=== PATIENT | male | born 1935 | race African-American/Black ===

== ENCOUNTER 2017-02-09 09:26 | Inpatient (IN) | payer MEDICARE, OTHER ==
[2017-02-09] MEDS ORDERED: Dexamethasone 10 MG/ML VIAL ONE (09:47)
[2017-02-09] MEDS ORDERED: Albuterol Sulfate 2.5 mg/0.5 ml Neb ONE (09:53)
[2017-02-09] MEDS ORDERED: Magnesium 2 GM/NS 0.9% 50 ML 2 GM in Premix Bag 1 BAG IVPB SCH (10:00)
[2017-02-09 10:15] LABS: INR-International Normal Ratio 1.6; Prothrombin Time 19.7 SEC (12.0-14.7)
[2017-02-09 10:16] LABS: PTT 44.5 SEC (22.9-36.1)
[2017-02-09 10:28] LABS: #Eosinphils 0.5 thou/uL (0.0-0.7); #Lymphocytes 1.7 thou/uL (1.20-3.40); #Monocytes 0.6 thou/uL (0.11-0.59); #Neutrophils 4.8 thou/uL (1.40-6.50); %Basophils 0.3 % (0.0-1.0); %Eosinophils 6.7 % (0.0-10.0); %Lymphocytes 22.3 % (21.0-51.0); %Monocytes 7.5 % (0.0-10.0); %Neutrophils 63.3 % (42.0-75.0); Hemoglobin 16.3 g/dL (14.0-18.0); Mean Corpuscular HGB CONC 33.3 g/dL (32.0-36.0); Mean Corpuscular Hemoglobin 31.6 pg (27.0-31.0); Mean Corpuscular Volume 94.7 fl (80.0-94.0); Mean Platelet Volume 8.8 fL (7.4-10.4); Platelet Count 206 thou/uL (130-400); RBC Distribution Width 12.7 % (11.5-14.5); Red Blood Cell (RBC) Count 5.17 mill/uL (4.70-6.10); White Blood Cell (WBC) Count 7.6 thou/uL (4.8-10.8)
[2017-02-09 10:31] LABS: ALT (SGPT) 22 U/L (8-55); AST (SGOT) 22 U/L (5-34); Albumin 4.5 g/dL (3.4-4.8); Alkaline Phosphatase 110 U/L (40-150); Anion Gap 13 mmol/L (10-20); BUN (Urea Nitrogen) 15 mg/dL (8.4-25.7); CK (CPK) 69 U/L (30-200); Calc. Creatinine Clearance 0 mL/min (70-130); Calcium 10.4 mg/dL (7.8-10.44); Carbon Dioxide 25 mmol/L (23-31); Chloride 104 mmol/L (98-107); Estimated GFR-MDRD 79; Globulin 3.2 g/dL (2.4-3.5); Glucose 114 mg/dL (83-110); Lipase 41 U/L (8-78); Potassium 4.1 mmol/L (3.5-5.1); Protein, Total 7.7 g/dL (5.8-8.1); Sodium 138 mmol/L (136-145)
[2017-02-09 10:32] LABS: CKMB 1.9 ng/mL (0-6.6)
[2017-02-09 10:40] LABS: Troponin I Less than 0.010 ng/mL (< 0.028)
[2017-02-09 10:58] LABS: Actual Bicarbonate (HCO3a) 25.6 mEq/L (22-26); Base Excess (BEa) 0.9 mEq/L (0 (+/-) 2.5); CO2 Tension 40.9 mmHg (35.0-45.0); Calcium, Ionized 1.2 mmol/L (1.12-1.30); Hematocrit-ABG 45.4 % (42.0-52.0); O2 Tension (PaO2) 80.5 mmHg (80.0-100.0); pH, Arterial 7.41 (7.35-7.45)
[2017-02-09 11:00] LABS: ALV-art Gradient 69.135 (0-20); Puncture Site RRA
--- NOTE | 2017-02-09 11:13 | RAD ---
SINGLE VIEW CHEST: Date: 02/09/17 COMPARISON: 12/23/16. CT chest 08/28/14. HISTORY: Shortness of breath and dyspnea. Chest tightness while coughing. FINDINGS: Single view of the chest shows a normal sized cardiomediastinal silhouette. In the left hilar region, there is a 3.0 cm mass-like opacity with central lucency. This is in the region where the previous c avitary lesion was seen in the lingula on the prior CT, but appears to have enlarged. A calcified gra nuloma is seen in the left lung base. No pleural effusion or pneumothorax seen. IMPRESSION: Left hilar mass with central lucency may represent a cavitary mass. A CT of the chest with contrast i s recommended for further evaluation. POS: CLAUDETTE
[2017-02-09 11:40] LABS: Bilirubin Negative (Negative); Blood, Urine Negative (Negative); Clarity CLEAR (Clear); Glucose, Urine (Dipstick) Negative (Negative); Leukocyte Negative (Negative); Nitrite Negative (Negative); Protein, Urine (Dipstick) Trace mg/dL (Neg-Trace); Specific Gravity, Urine 1.014 (1.002-1.036)
--- NOTE | 2017-02-09 12:48 | CT ---
CT PULMONARY ANGIOGRAM WITH IV CONTRAST AND 3D POSTPROCESSING: Date: 02/09/17 HISTORY: Shortness of breath. Dyspnea. Chest pain. Coughing. COPD. FINDINGS: Comparison made with exam of 08/28/14. The pulmonary arterial vasculature is well opacified without filling defects to suggest pulmonary emb olism. The thoracic aorta is well opacified without aneurysm or dissection. No vascular calcification s are present. No mediastinal or hilar or axillary lymphadenopathy seen. No pleural or pericardial ef fusions are seen. There are emphysematous changes mainly in the upper lung santiago. A spiculated and cavitated 3.0 cm ma ss is seen (with thickened mckeon of the cavity) in the left upper lobe with intraluminal extension in to the branch of the left upper lobe bronchus. The thyroid nodules and evidence of old granulomatous disease are again seen. There are degenerative changes in the spine. The 7.0 mm nodule in the posterior inferior aspect of the right upper lobe adjacent to the fissure is stable. A new 8.0 mm parenchymal nodule has, however, developed in the left lung base. There is bron chiectasis in the right lung base. Upper abdominal tomograms demonstrate cholelithiasis, left renal cyst, and calcified granulomas in th e spleen. IMPRESSION: 1. No CT evidence of pulmonary embolism. 2. Findings suspicious for left lung malignancy. CODE T. CODE LN
[2017-02-09] MEDS ORDERED: Sodium Chloride 0.9% 1,000 ML IV SCH (13:11)
[2017-02-09] MEDS ORDERED: Ondansetron ODT 4 MG TAB SL PRN ×2 (13:11→21:11)
[2017-02-09] MEDS ORDERED: Ondansetron HCl/PF 4 MG/2 ML Vial IVP PRN ×2 (13:11→21:09)
[2017-02-09] MEDS ORDERED: ISOVUE-370 76%-LOCM 1 ML ONE (14:00)
[2017-02-09 14:20] LABS: Lactic Acid 1.2 mmol/L (0.5-2.2)
--- NOTE | 2017-02-09 16:59 | CON ---
DATE OF CONSULTATION: 02/09/2017 This is an 81-year-old gentleman recently discharged from the hospital, presented wi th increasing shortness of breath, coughing and wheezing. X-ray showed a left upper lung cavitary in filtrate. CAT scan confirmed this. He denies any hemoptysis, chest pain, chills or sweats. According to his daughter who is at the beds jose, she says that following his discharge, he did well and started having more wheezing and coughing . He has lost considerable weight. His sats were 92% on room air. According to his daughter on most days he is able to walk a fair distance without getting markedly sh ort of breath. Today, he can barely walk 20 feet. PAST MEDICAL HISTORY: COPD, CVA, multiple, right-sided weakness, diabetes, hyperlipidemia, high chol esterol, hypertension, previous pneumonia. PAST SURGICAL HISTORY: Appendix. MEDICATIONS FROM HOME: Includes a Medrol tapering dose, hydralazine 25 three times a day, Spiriva, F tyree 0.4, Procardia 30, lisinopril 20, Atrovent, Pepcid, Eliquis 5. ALLERGIES: Apparently PREDNISONE. Anaphylaxis. 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 REVIEW OF SYSTEMS: Otherwise 10 point negative. PHYSICAL EXAMINATION: VITAL SIGNS: His sats are 92%, respirations 18, pulse 80. GENERAL: Mild distress. CHEST: Chest with bilateral diffuse wheezing. CARDIAC: Normal S1-S2. No gallops. ABDOMEN: No masses. LABORATORY: Reports personally reviewed including a chest x-ray which shows the left lower lung cavi tary infiltrate, retrospectively it might have been present on previous x-rays, though the technique was different. CAT scan confirmed the above findings, cavitary mass 3 cm, thick walled in the superi or segment of the lower lobe or left upper lobe. His lab otherwise shows a white count of 7000, H&H 16 and 40, platelet count is normal. INR is 1.6. Blood gases pO2 was 80, pCO2 47.41, creatinine is normal. IMPRESSION: 1. Chronic obstructive pulmonary disease exacerbation. 2. Bronchitis. 3. Left upper lung cavitary mass. 4. Former smoker. 5. Cerebrovascular accident. 6. Diabetes. 7. Hypertension. Apparently he is allergic to PREDNISONE as per his history which doctor was started on Decadron , neb treatments. I am going to adjust his medication. Once the pulmonary status improves, consider workup regarding his lung mass. Please note this is 50 minutes time, which 50% of the time was spent on the floor direct patient car e.
[2017-02-09] MEDS: cloNIDine 0.1 MG TAB PO PRN (17:32)
[2017-02-09] MEDS ORDERED: Dexamethasone 4 mg/ml Vial SLOW IVP SCH ×2 (18:00→21:00)
[2017-02-09] MEDS ORDERED: Mometasone/Formoterol 120 PUFF INHALER INH SCH (18:30)
[2017-02-09] MEDS: Amoxicillin/Potassium Clav 500 MG TAB PO SCH (20:21)
[2017-02-09] MEDS: Apixaban 5 MG TAB PO SCH (21:56)
[2017-02-09] MEDS: NIFEdipine XL 30 MG TAB PO SCH (21:56)
[2017-02-09] MEDS: Famotidine 20 MG TAB PO SCH (21:56)
[2017-02-09] MEDS: Carvedilol 6.25 MG TAB PO SCH (21:56)
[2017-02-09] MEDS: hydrALAZINE 25 MG TAB PO SCH (21:57)
[2017-02-09] MEDS: Lisinopril 20 MG TAB PO SCH (21:57)
[2017-02-09] MEDS: Dexamethasone 4 mg/ml Vial SLOW IVP SCH (23:35)
[2017-02-09] MEDS: Sodium Chloride 0.9% 1,000 ML IV SCH (23:36)
--- NOTE | 2017-02-10 03:15 | HP ---
DATE OF ADMISSION: 02/09/2017 CHIEF COMPLAINT: Cough. HISTORY OF PRESENT ILLNESS: This is an 81-year-old black male patient of Dr. Evgeny Moe, who had been in [place] in early December for a 2-day stay for COPD. He was admitted on the and disc harged on the . He was given methylprednisolone taper, which he had finished and a few days ago, he started to have his cough come back and so he came to the emergency room. At that point, further imaging found a new cavitary lesion in his left lobe. He was admitted for more help with his COPD e xacerbation and for further information from Pulmonology regarding this new finding of a lung mass. He sees Dr. Benites routinely for his COPD. His son is in the room with him today. Dr. Mcneill has al ready been by and seen him for Dr. Benites. PAST MEDICAL HISTORY: Positive for COPD; hypertension; several CVAs in the past with a chronic right facial droop as a result and some mild weakness in upper and lower extremities, but he does ambulate with a cane and has use of all 4 extremities; history of hyperlipidemia; history of BPH with lower u rinary tract symptoms. PAST SURGICAL HISTORY: Positive for appendectomy and cataract repair. MEDICATIONS: Eliquis 5 mg b.i.d., Lipitor 10 mg a day, Coreg 6.25 mg b.i.d., hydralazine 25 mg t.i.d ., lisinopril 20 mg b.i.d., nifedipine 30 mg at bedtime, Pepcid 20 mg b.i.d., albuterol inhalers p.r. n., Atrovent nebulizers at least once a day and p.r.n., also has Dulera inhaler 200/5 that he takes 2 puffs b.i.d., and Flomax 0.4 mg daily. ALLERGIES: He has an allergy to prednisone, anaphylaxis, possibly. The family states that they were told that the prednisone might have been a contributing factor to one of his CVAs. SOCIAL HISTORY: He is a , lives at home with family. I think primarily cousins. 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 He was a smoker in the past, but quit in the . FAMILY HISTORY: Negative for vascular diseases, but there are some family members, not exactly sure who, that had lung cancers. REVIEW OF SYSTEMS: He denies any fever or headache. No changes in his vision. Denies any new findi ngs regarding his facial neurological deficits. No trouble chewing or swallowing. He denies any hem optysis or hematemesis. No melena. No bright red blood per rectum. Denies any changes to bowel or bladder habits. Denies any abdominal pain, pelvic pain. Denies any dysuria or hematuria. Neurologi nadeem, he has had poor vision in his right eye for a long time. Also, his hearing has been getting w orse and some slight memory issues. Denies any suicidal or homicidal ideations. Denies any auditory or visual hallucinations. Denies any new paresthesias or paresis, only one that he complains of is the right side of his face. PHYSICAL EXAMINATION: GENERAL: He is awake, alert, cooperative, thin, and appears his stated age of 81. VITAL SIGNS: Temperature 97.9, pulse 71, respirations 16, saturating 98% on 2-1/2 liters of O2 by na quincy cannula, his BP is 149/70. HEENT: He has normocephalic, atraumatic cranium with pupils that are equal, round, and reactive to l ight and accommodation. Wears glasses. He has very poor dentition, missing several teeth. He does have obvious right facial droop, but able to talk. There is no difficulty in understanding his speec h. No JVD or bruits are appreciable. NECK: Supple. No lymphadenopathy. LUNGS: Have some diffuse light wheezes throughout. No rhonchi. No whispering pectoriloquy. HEART: S1 and S2 with no rubs, murmurs, or gallops. ABDOMEN: Soft, nontender, and nondistended. No masses. GENITOURINARY: Deferred. EXTREMITIES: Showed good palpable pulses x4. No cyanosis, clubbing, or edema. NEUROLOGIC: He is alert and oriented x4. Cranial nerves II through XII are grossly intact except fo r the right side of face. Right-sided upper and lower extremities have 3/5 strength, left side is 4/ 5. There is no sensory deficit noted. LABORATORY AND X-RAY FINDINGS: His labs showed white count 7.6, H&H are 16 and 49 respectively with 206,000 platelets. Sodium 138, potassium 4.1, chloride 104, bicarb 25, BUN is 14, creatinine is 1.09 , glucose 114. His GFR is 79. INR is 1.6. Beta natriuretic peptide is 115. Chest x-ray and a CT angio of the thorax were done in the emergency room, which showed the left lower lobe cavitary lesion. ASSESSMENT AND PLAN: Chronic obstructive pulmonary disease exacerbation, new lung mass finding per Beatrice Mcneill of Pulmonology. We will get him back to his baseline pulmonary function and then plan discha rge for further workup of his lung mass. We will continue his home medications and possibly discharg e tomorrow if he continues to maintain doing this well that he is here tonight.
[2017-02-10] MEDS: cloNIDine 0.1 MG TAB PO PRN (03:17)
[2017-02-10] MEDS: Dexamethasone 4 mg/ml Vial SLOW IVP SCH ×3 (05:01→17:49)
[2017-02-10] MEDS: Ipratropium Bromide 2.5 ml Neb NEB SCH ×4 (06:16→19:01)
[2017-02-10] MEDS: Mometasone/Formoterol 120 PUFF INHALER INH SCH ×2 (06:23→19:04)
--- NOTE | 2017-02-10 09:00 | PRG ---
DATE OF SERVICE: 02/10/2017 SUBJECTIVE: The patient is feeling minimally better with improved cough and shortness breath when he is not moving around, but continues to feel tight in his chest, has some improvement with nebulizer treatments this morning. Denies hemoptysis. No syncope. PHYSICAL EXAMINATION: VITAL SIGNS: Temperature 97.8, pulse of 68, respirations 12-18, pulse ox is 94% on 2 liters, blood p ressure 142/63. GENERAL: He is awake and alert. He has some conversational dyspnea. NECK: Supple. HEART: Regular rate and rhythm. LUNGS: With diminished breath sounds and expiratory wheezes throughout. No rales or rhonchi. ABDOMEN: Soft. EXTREMITIES: With 2+ pulses. LABORATORY DATA: Blood cultures still negative. Flu test was negative. ASSESSMENT AND PLAN: This is an 81-year-old gentleman with known chronic obstructive pulmonary disea se, now with chronic obstructive pulmonary disease exacerbation as well as a new onset lung mass. 1. Chronic obstructive pulmonary disease and bronchitis. We will continue steroids and antibiotic t herapy. I appreciate Dr. Mcneill's input. 2. Left upper lung cavitary mass. Workup as an outpatient per pulmonary. He will follow up with Dr Sandra Benites. 4. History of cerebrovascular accident. Continue Eliquis. 5. Hypertension is stable on his current medications. We will continue to monitor closely. 6. Type 2 diabetes. We will continue to monitor closely, especially being on the steroids. We will get Accu-Cheks.
[2017-02-10] MEDS: hydrALAZINE 25 MG TAB PO SCH ×3 (09:22→20:20)
[2017-02-10] MEDS: Carvedilol 6.25 MG TAB PO SCH ×2 (09:22→20:21)
[2017-02-10] MEDS: Apixaban 5 MG TAB PO SCH ×2 (09:22→20:22)
[2017-02-10] MEDS: Tamsulosin HCl 0.4 MG CAP PO SCH (09:22)
[2017-02-10] MEDS: Famotidine 20 MG TAB PO SCH ×2 (09:22→20:21)
[2017-02-10] MEDS: Lisinopril 20 MG TAB PO SCH ×2 (09:22→20:21)
[2017-02-10] MEDS: Amoxicillin/Potassium Clav 500 MG TAB PO SCH ×2 (09:22→20:22)
--- NOTE | 2017-02-10 13:34 | PRG ---
DATE OF SERVICE: 02/10/2017 The patient feels a little better. PHYSICAL EXAMINATION: VITAL SIGNS: Temperature 98.0, pulse is 67, blood pressure 139/64, O2 saturation 96%, respiratory ra te 16. He is awake and alert. HEENT: Remarkable for poor dentition. NECK: No JVD. LUNGS: Rhonchi bilaterally. CARDIOVASCULAR: S1 and S2 regular. ABDOMEN: Soft, nontender. EXTREMITIES: No edema. LABORATORY DATA: Laboratory data from yesterday was reviewed, cultures show no growth to date. ASSESSMENT: 1. Left upper lobe cavitary mass measuring 3 cm. 2. History of cerebrovascular accident. 3. Hypertension. 4. Diabetes mellitus. PLAN: Continuing his steroids, nebulization therapy and antibiotics. He should be able to be discha rged in a day or two. He needs to follow up in the office in 2-3 weeks with a repeat x-ray. If the cavitation has not dissipated then he will need a bronchoscopy to workup for lung cancer.
[2017-02-10] MEDS: Sodium Chloride 0.9% 1,000 ML IV SCH ×2 (13:56→23:41)
[2017-02-10] MEDS: NIFEdipine XL 30 MG TAB PO SCH (20:21)
[2017-02-11] MEDS: Dexamethasone 4 mg/ml Vial SLOW IVP SCH ×2 (00:18→06:06)
[2017-02-11 05:44] LABS: #Lymphocytes 0.6 thou/uL (1.20-3.40); #Monocytes 0.3 thou/uL (0.11-0.59); #Neutrophils 11.1 thou/uL (1.40-6.50); %Eosinophils 0.1 % (0.0-10.0); %Lymphocytes 4.7 % (21.0-51.0); %Monocytes 2.4 % (0.0-10.0); %Neutrophils 92.8 % (42.0-75.0); Hemoglobin 13.9 g/dL (14.0-18.0); Mean Corpuscular HGB CONC 32.2 g/dL (32.0-36.0); Mean Corpuscular Hemoglobin 30.4 pg (27.0-31.0); Mean Corpuscular Volume 94.6 fl (80.0-94.0); Mean Platelet Volume 9.3 fL (7.4-10.4); Platelet Count 190 thou/uL (130-400); RBC Distribution Width 12.6 % (11.5-14.5); Red Blood Cell (RBC) Count 4.57 mill/uL (4.70-6.10)
[2017-02-11 06:01] LABS: Anion Gap 10 mmol/L (10-20); BUN (Urea Nitrogen) 18 mg/dL (8.4-25.7); Calc. Creatinine Clearance 50 mL/min (70-130); Carbon Dioxide 22 mmol/L (23-31); Chloride 113 mmol/L (98-107); Estimated GFR-MDRD 89; Glucose 157 mg/dL (83-110); Potassium 4.3 mmol/L (3.5-5.1); Sodium 141 mmol/L (136-145)
[2017-02-11] MEDS: Ipratropium Bromide 2.5 ml Neb NEB SCH ×4 (06:30→19:09)
[2017-02-11] MEDS: Mometasone/Formoterol 120 PUFF INHALER INH SCH ×2 (06:33→19:12)
--- NOTE | 2017-02-11 09:01 | PRG ---
DATE OF SERVICE: 02/11/2017 SUBJECTIVE: The patient continues to have cough and shortness of breath. Denies any hemoptysis. St ill has tightness in his chest with some improvement with nebulizer treatments. No syncope. No ligh theadedness, no fevers or chills. No nausea and vomiting. PHYSICAL EXAMINATION: VITAL SIGNS: Temperature 97.7, pulse of 78, respirations 20, blood pressure 153/69, pulse ox is 97% on 2 liters. GENERAL: He is awake and alert. He does have some conversational dyspnea. NECK: Supple, no JVD, adenopathy or bruits. HEART: Regular rate and rhythm. LUNGS: With scattered rhonchi bilaterally, decreased breath sounds and expiratory wheezes. ABDOMEN: Soft. EXTREMITIES: With no edema. LABORATORY DATA: Sodium 141, potassium 4.3, chloride 113, CO2 22, BUN and creatinine 18 and 0.98 wit h GFR of 89, serum glucose of 157. Accu-Cheks of 134, 163, 176, 168, calcium of 8.0. White blood ce ll count 12.0, yesterday it was 7.6, hemoglobin and hematocrit 13.9 and 43.2, platelets of 190. PT a nd PTT were elevated 2 days ago at 19.7 and 44.5. ASSESSMENT AND PLAN: This is an 81-year-old gentleman with a long history of chronic obstructive pul monary disease, history of hypertension, remote history of cerebrovascular accident, now with broncho pneumonia and new cavitary mass. 1. Bronchopneumonia. We will continue steroids and antibiotics. We will change his antibiotics to Levaquin for more atypical coverage. 2. Cavitary mass. Continue workup as per Pulmonary. Will recheck chest x-ray for any resolution wi th antibiotics. 3. History of cerebrovascular accident. We will continue Eliquis for anticoagulation. 4. Elevated PT, PTT. Will check a liver ultrasound to rule out any inflammatory etiology of his braden vated PT, PTT, could possibly due to Eliquis. 5. Type 2 diabetes. We will continue Accu-Cheks while he is on steroids. 6. Decreased hemoglobin and hematocrit. We will continue to follow. Continue gastrointestinal prot ection with H2 blockers.
[2017-02-11] MEDS: Apixaban 5 MG TAB PO SCH ×2 (09:38→21:27)
[2017-02-11] MEDS: Carvedilol 6.25 MG TAB PO SCH ×2 (09:39→21:27)
[2017-02-11] MEDS: hydrALAZINE 25 MG TAB PO SCH ×3 (09:39→21:48)
[2017-02-11] MEDS: Lisinopril 20 MG TAB PO SCH ×2 (09:39→21:28)
[2017-02-11] MEDS: Famotidine 20 MG TAB PO SCH ×2 (09:39→21:27)
[2017-02-11] MEDS: Tamsulosin HCl 0.4 MG CAP PO SCH (09:39)
[2017-02-11] MEDS: Sodium Chloride 0.9% 1,000 ML IV SCH ×2 (09:48→20:05)
--- NOTE | 2017-02-11 12:42 | PRG ---
DATE OF SERVICE: 02/11/2017 SUBJECTIVE: Still having problems with cough and congestion. PHYSICAL EXAMINATION: VITAL SIGNS: On exam, his temperature is 97.7, pulse 78, respirations 20, O2 sat 97% on 2 liters, bl ood pressure 153/69. HEENT: Unremarkable. NECK: No JVD. CHEST: Fairly clear. CARDIAC: S1 and S2 regular. ABDOMEN: Soft. EXTREMITIES: No edema. LABORATORY DATA: White blood cell count 12, hematocrit 43.2, platelet count 190. Sodium 141, potass ium 4.3, chloride 113, CO2 of 22, BUN 18, creatinine 0.9, glucose 157. ASSESSMENT: 1. Bronchopneumonia. 2. Left upper lobe cavitary lesion. 3. Extremely poor dentition - he has only 3 teeth and 1 on top, left is necrotic. This could potent ially put him at risk for anaerobic lung infection. RECOMMENDATION: Would recommend continuing to treat him with antibiotics for about 2 weeks. He shou ld be okay to discharge soon. I will go ahead and change him over to oral steroids. He will need a follow up CT scan in 3-4 weeks.
--- NOTE | 2017-02-11 15:58 | ULT ---
ULTRASOUND ABDOMEN: HISTORY: Abnormal labs. FINDINGS: The liver demonstrates a homogeneous echotexture without focal mass identified. Ductal dilatation an d echogenic foci in the spleen are consistent with old granulomatous disease. There is echogenic slu dge in the gallbladder with the gallbladder wall measuring about 3 mm in thickness. No shadowing isidro culi or pericholecystic fluid is seen. The common duct measures 5 mm in diameter. The visualized po rtions of the pancreas, aorta, and IVC are unremarkable. No hydronephrosis is seen on either side. There are bilateral renal cysts, the largest measuring 1.8 cm and located in the inferior pole of the left kidney. No free fluid is seen. IMPRESSION: 1. Splenic granulomas. 2. Gallbladder sludge. Tiny calculi cannot be excluded. 3. Bilateral renal cysts. POS: [facility]
[2017-02-11] MEDS: Dexamethasone 1 MG TAB PO SCH (16:49)
[2017-02-11] MEDS: NIFEdipine XL 30 MG TAB PO SCH (21:27)
[2017-02-12 05:59] LABS: #Lymphocytes 0.7 thou/uL (1.20-3.40); #Monocytes 0.5 thou/uL (0.11-0.59); #Neutrophils 7.4 thou/uL (1.40-6.50); %Eosinophils 0.2 % (0.0-10.0); %Lymphocytes 7.8 % (21.0-51.0); %Monocytes 5.3 % (0.0-10.0); %Neutrophils 86.8 % (42.0-75.0); Hemoglobin 14.5 g/dL (14.0-18.0); Mean Corpuscular HGB CONC 30.8 g/dL (32.0-36.0); Mean Corpuscular Hemoglobin 29.1 pg (27.0-31.0); Mean Corpuscular Volume 94.4 fl (80.0-94.0); Mean Platelet Volume 9.9 fL (7.4-10.4); Platelet Count 185 thou/uL (130-400); RBC Distribution Width 12.7 % (11.5-14.5); Red Blood Cell (RBC) Count 4.99 mill/uL (4.70-6.10); White Blood Cell (WBC) Count 8.5 thou/uL (4.8-10.8)
[2017-02-12 06:03] LABS: INR-International Normal Ratio 1.6; PTT 35.9 SEC (22.9-36.1); Prothrombin Time 19.1 SEC (12.0-14.7)
[2017-02-12 06:13] LABS: ALT (SGPT) 26 U/L (8-55); AST (SGOT) 19 U/L (5-34); Albumin 3.6 g/dL (3.4-4.8); Alkaline Phosphatase 86 U/L (40-150); Anion Gap 8 mmol/L (10-20); BUN (Urea Nitrogen) 17 mg/dL (8.4-25.7); Bilirubin, Total 0.7 mg/dL (0.2-1.2); Calc. Creatinine Clearance 51 mL/min (70-130); Calcium 9.2 mg/dL (7.8-10.44); Carbon Dioxide 28 mmol/L (23-31); Chloride 107 mmol/L (98-107); Estimated GFR-MDRD Greater than 90; Globulin 2.7 g/dL (2.4-3.5); Glucose 121 mg/dL (83-110); Protein, Total 6.3 g/dL (5.8-8.1); Sodium 139 mmol/L (136-145)
[2017-02-12] MEDS: Sodium Chloride 0.9% 1,000 ML IV SCH (06:35)
[2017-02-12 06:56] VITALS: BP 172/74; TEMP 97.5
[2017-02-12] MEDS: Mometasone/Formoterol 120 PUFF INHALER INH SCH (07:07)
[2017-02-12] MEDS: Ipratropium Bromide 2.5 ml Neb NEB SCH (07:08)
[2017-02-12] MEDS: Dexamethasone 1 MG TAB PO SCH (08:00)
[2017-02-12] MEDS: Famotidine 20 MG TAB PO SCH (08:00)
[2017-02-12] MEDS: Lisinopril 20 MG TAB PO SCH (08:00)
[2017-02-12] MEDS: Apixaban 5 MG TAB PO SCH (08:00)
[2017-02-12] MEDS: hydrALAZINE 25 MG TAB PO SCH (08:01)
[2017-02-12] MEDS: Carvedilol 6.25 MG TAB PO SCH (08:01)
[2017-02-12] MEDS: Tamsulosin HCl 0.4 MG CAP PO SCH (08:01)
--- NOTE | 2017-02-12 09:11 | DIS ---
DATE OF ADMISSION: 02/09/2017 DATE OF DISCHARGE: 02/12/2017 ADMISSION DIAGNOSES: Chronic obstructive pulmonary disease exacerbation, bronchopneumonia, new lung mass. CONSULTATIONS: Dr. Benites for Pulmonary. PROCEDURES: IV antibiotics, IV steroids, CT chest. HOSPITAL COURSE: This is an 81-year-old gentleman with a long history of COPD who [facility] with worsening cough and shortness of breath. He was recently admitted for COPD exacerbation earlier this month and was discharged home on antibiotics and a steroid taper. He impro jeff and then started to worsen again over the past few days prior to admission. On admission, he was found to have COPD exacerbation, pneumonitis as well as a new lung mass. He was started on antibiot ics, IV steroids, seen by Dr. Mcneill and Dr. Benites. His antibiotics were started with Augmentin and then switched to Levaquin and he had significant improvement of his symptoms. He had elevated PT, PT T, abdominal ultrasound was done to rule out any kind of liver mets due to the new lung mass and this was normal. Likely PT, PTT was due to the Eliquis. The patient continued to improve during his hos pitalization. Dr. Benites felt like the patient was getting close to his baseline, recommended longe r term antibiotics for about 2 weeks and switch him to oral steroids with close to follow up on the c avitary lesion to see if that was a new lung mass versus pneumonia. He was discharged home in good c ondition. DISCHARGE PHYSICAL EXAMINATION: VITAL SIGNS: Temperature 97.5, pulse of 70, respirations 16, blood pressure 172/74, pulse ox 95% on 2 liters. GENERAL: He is awake and alert, in no acute distress. He is sitting up. No conversational dyspnea. NECK: Supple. HEART: Regular rate and rhythm. LUNGS: Decreased breath sounds, occasional rhonchi, no wheeze or rales. ABDOMEN: Soft. EXTREMITIES: With no edema. DISCHARGE MEDICATIONS: Include Levaquin 500 mg daily for 2 more weeks; Decadron 2 mg p.o. b.i.d. for 5 days, then once daily for 5 days; Eliquis 5 mg b.i.d.; DuoNeb daily; Coreg 6.25 mg b.i.d.; Pepcid 20 mg b.i.d.; hydralazine 25 mg t.i.d.; Zestril 20 mg b.i.d.; Dulera 2 puffs b.i.d.; Procardia-XL 30 mg at bedtime; Flomax 0.4 mg daily. FOLLOWUP INSTRUCTIONS: Patient to follow up in my office in [address] Benites in 1-2 weeks .
--- NOTE | 2017-02-27 19:46 | EKG ---
Test Reason : Blood Pressure : / mmHG Vent. Rate : 087 BPM Atrial Rate : 087 BPM P-R Int : 150 ms QRS Dur : 074 ms QT Int : 376 ms P-R-T Axes : 078 081 075 degrees QTc Int : 452 ms Normal sinus rhythm Normal ECG Confirmed by JAZMINE WATKINS, KARINA ([id number]), acquisition editor TIFF GRECO ([id number]) on 02/27/2017 7:45:49 PM Referred By: Confirmed By:KARINA LUCERO MD
== END 2017-02-12 10:51 | disposition home or self-care (01) | DRG 194 ==
LOC: ERS 09:26 → ONC 11:33
PROVIDERS: ADMIT Family Medicine; ATTEND Family Medicine
DX: J18.0 Bronchopneumonia, unspecified organism (principal); J44.1 Chronic obstructive pulmonary disease with (acute) exacerbation; I69.351 Hemiplegia and hemiparesis following cerebral infarction affecting right dominant side; J44.0 Chronic obstructive pulmonary disease with (acute) lower respiratory infection; E11.9 Type 2 diabetes mellitus without complications; I69.398 Other sequelae of cerebral infarction; E78.5 Hyperlipidemia, unspecified; I10 Essential (primary) hypertension; Z88.8 Allergy status to other drugs, medicaments and biological substances; Z87.891 Personal history of nicotine dependence; R91.1 Solitary pulmonary nodule
CPT/HCPCS: 36415; 36416; 71010; 71275; 76700; 80048; 80053; 81003; 82553; 82805; 83605; 83690; 83880; 84484; 85025; 85610; 85730; 87040; 87804; 93005; 94640; 94760; 96365; 96375; J1100; J1956; J3475; J7611; J7620; J7644; J8540

== ENCOUNTER 2017-03-25 08:57 | Outpatient (CLI) | payer MEDICARE, MEDICAID ==
--- NOTE | 2017-03-25 10:12 | CT ---
CT OF CHEST PERFORMED WITH INTRAVENOUS CONTRAST ENHANCEMENT: History: Follow up pulmonary nodule. Comparison: 02-09-17 FINDINGS: There are radiographic changes of COPD. There is a calcified granuloma in the left lower lobe. There are two pleural based areas of nodularit y along the right hemidiaphragm. The larger measures 9 mm in size as compared to 8 mm on the prior ex am and the smaller measures approximately 6 mm in maximum dimension which appears stable. A cavitary thick walled left upper lobe mass is again demonstrated. The cavitary portion of the lesio n is smaller and therefore the overall dimensions are also slightly smaller where on the prior examin ation a measurement of 3 cm was obtained, now this measurement is approximately 2.5 cm when comparing at the same level. I do not believe that the soft tissue component of this mass is significantly pabol nged and what appears to be some endobronchial extension along the left upper lobe bronchus is stable . No significant mediastinal or hilar adenopathy or calcified hilar lymph nodes present. The visualized liver parenchyma shows some minimal intrahepatic ductal dilatation without any extrahe patic ductal prominence. This appears similar to prior examination. Increased attenuation associated with the gallbladder is probably related to stones. Ultrasound would be needed for confirmation. Right and left adrenal glands are normal. There are hypodensities involving both the right and left k idneys, statistically most likely cysts. No upper abdominal adenopathy is present. IMPRESSION: 1. Stable appearance to two nodules along the left hemidiaphragm. 2. Cavitary mass within the left upper lobe shows a less prominent cavitary component but the soft ti ssue component appears unchanged. 3. COPD changes. POS: CLAUDETTE
[2017-03-25] MEDS ORDERED: Iopamidol 370 76% 100 ML VIAL ONE (13:26)
== END 2017-03-25 08:58 | disposition home or self-care (01) ==
LOC: CT 08:57
PROVIDERS: ATTEND Internal Medicine Critical Care Medicine
DX: R91.8 Other nonspecific abnormal finding of lung field (principal); J98.6 Disorders of diaphragm
CPT/HCPCS: 71260

== ENCOUNTER 2017-05-11 10:37 | Outpatient (CLI) | payer MEDICARE, OTHER ==
--- NOTE | 2017-05-11 12:50 | RAD ---
RADIOGRAPH CHEST 2 VIEWS: Date: 05-11-17 Time: 10:47 a.m. HISTORY: 81-year-old male with dyspnea. COMPARISON: 12-23-16 FINDINGS: Again noted is the greater than 2 cm noncalcified mass in the anterior segment of the left upper lobe (demonstrated on prior CTs to have a small central cavitation). Calcified granuloma in left lower lo be. No cardiomegaly. No widening of the mediastinum other than mildly tortuous thoracic aorta. No pul monary vascular engorgement, pulmonary edema, acute airspace density, pleural effusion or pneumothora x. No obvious interval change. IMPRESSION: 1. Small mass in the anterior segment of the left upper lobe. 2. No acute findings. SHERI POS: CLAUDETTE
== END 2017-05-11 10:38 | disposition home or self-care (01) ==
LOC: RAD 10:37
PROVIDERS: ATTEND Internal Medicine Critical Care Medicine
DX: R06.00 Dyspnea, unspecified (principal); R91.8 Other nonspecific abnormal finding of lung field
CPT/HCPCS: 71046

== ENCOUNTER 2017-08-04 09:35 | Inpatient (IN) | payer MEDICARE, OTHER ==
[2017-08-04 10:21] LABS: #Basophils 0.1 thou/uL (0.0-0.2); #Eosinphils 0.5 thou/uL (0.0-0.7); #Monocytes 0.5 thou/uL (0.11-0.59); #Neutrophils 5.4 thou/uL (1.40-6.50); %Basophils 0.7 % (0.0-1.0); %Eosinophils 6.5 % (0.0-10.0); %Lymphocytes 12.9 % (21.0-51.0); %Monocytes 6.8 % (0.0-10.0); %Neutrophils 73.1 % (42.0-75.0); Hemoglobin 15.6 g/dL (14.0-18.0); Mean Corpuscular HGB CONC 33.1 g/dL (32.0-36.0); Mean Corpuscular Hemoglobin 30.2 pg (27.0-31.0); Mean Corpuscular Volume 91.2 fL (78.0-98.0); Mean Platelet Volume 9.1 fL (7.4-10.4); Platelet Count 151 thou/uL (130-400); RBC Distribution Width 12.7 % (11.5-14.5); Red Blood Cell (RBC) Count 5.15 mill/uL (4.70-6.10); White Blood Cell (WBC) Count 7.4 thou/uL (4.8-10.8)
[2017-08-04 10:42] LABS: ALT (SGPT) 19 U/L (8-55); AST (SGOT) 23 U/L (5-34); Albumin 4.2 g/dL (3.4-4.8); Alkaline Phosphatase 93 U/L (40-150); Anion Gap 15 mmol/L (10-20); BUN (Urea Nitrogen) 17 mg/dL (8.4-25.7); Calc. Creatinine Clearance 0 mL/min (70-130); Calcium 9.9 mg/dL (7.8-10.44); Carbon Dioxide 26 mmol/L (23-31); Chloride 105 mmol/L (98-107); Estimated GFR-MDRD 75; Globulin 2.9 g/dL (2.4-3.5); Glucose 176 mg/dL (83-110); Potassium 4.3 mmol/L (3.5-5.1); Protein, Total 7.1 g/dL (5.8-8.1); Sodium 142 mmol/L (136-145)
[2017-08-04 10:47] LABS: CKMB 1.5 ng/mL (0-6.6); Troponin I Less than 0.010 ng/mL (< 0.028)
--- NOTE | 2017-08-04 11:00 | RAD ---
AP CHEST: History: COPD. Date: 08-04-17 Comparison: 02-09-17 FINDINGS: Images demonstrate a cavitary lesion in the left hilar region, unchanged since the previous exam. No other masses or lesions seen. No evidence of effusions seen. IMPRESSION: Left hilar cavitary lesion. POS: [facility]
[2017-08-04] MEDS ORDERED: Azithromycin 500 MG VIAL ONE (12:25)
[2017-08-04] MEDS ORDERED: predniSONE 20 MG TAB ONE (12:25)
[2017-08-04] MEDS ORDERED: cefTRIAXone\\ROCEPHIN 1 GM VIAL ONE (12:25)
[2017-08-04] MEDS ORDERED: hydrALAZINE 20 MG/ML VIAL ONE (15:42)
[2017-08-04] MEDS ORDERED: Acetaminophen 325 MG TAB PO PRN (16:44)
[2017-08-04] MEDS ORDERED: Ondansetron ODT 4 MG TAB SL PRN (16:44)
[2017-08-04] MEDS ORDERED: Ondansetron HCl/PF 4 MG/2 ML Vial IVP PRN (16:44)
[2017-08-04 17:38] VITALS: BMI 20.9
[2017-08-04] MEDS ORDERED: cloNIDine 0.1 MG TAB PO PRN (18:00)
[2017-08-04] MEDS ORDERED: PROVENTIL INHALER 6.7 G (200 INHALATIONS) INH PRN (18:15)
[2017-08-04] MEDS: Carvedilol 6.25 MG TAB PO SCH (22:25)
[2017-08-04] MEDS: Atorvastatin Calcium 10 MG TAB PO SCH (22:25)
[2017-08-04] MEDS: NIFEdipine XL 30 MG TAB PO SCH (22:26)
[2017-08-04] MEDS: Apixaban 5 MG TAB PO SCH (22:26)
[2017-08-04] MEDS: hydrALAZINE 25 MG TAB PO SCH (22:29)
--- NOTE | 2017-08-04 22:29 | CT ---
CT THORAX WITH CONTRAST: Date: 08/04/17 Time: 11/13 p.m. HISTORY: Followup lung mass in 82-year-old male. Dyspnea. History of tuberculosis. COMPARISON: 03/25/17 and 02/09/17. TECHNIQUE: IV iodinated contrast media: Isovue FINDINGS: There is a new approximately 0.8 x 1.2 x 1.3 cm low attenuation focal lesion in the anterior dome of the liver, close to the liver capsule and close to the diaphragm, at the junction between hepatic seg ments 4A of the left lobe and hepatic segment 8 of the right lobe. There is faint, probable minimal r im enhancement (axial image 54 of 70, series 2; coronal image 39 of 121, series 601). The cavitary mass in the anterior segment of the left upper lobe was previously 3 x 2.2 x 1.8 cm in 1 04/12/16. It has now grown to 4 x 3.5 x 2.2 cm. As the nodular soft tissue lobulated component has diane wn, the central cavity is smaller than it was on 02/09/17, but larger than it was on 03/25/17. The soft tissue density component invading the anterior segmental branch of the left upper lobe bronchus has also become thicker. That branch of the bronchus has been occluded since 02/09/17. The previously described 0.8 cm pulmonary nodule at the base of the left lower lobe, abutting the lef t hemidiaphragm, has grown to current dimensions of 1.7 x 1.5 x 1.3 cm (50 of 70, series 3; 80 of 121 , series 601). Located a distance of approximately 3.5 cm anterior to it, there is another noncalcified pulmonary no dule at the base of the left lower lobe, also abutting the left hemidiaphragm. It was present previou sly, but was less conspicuous. It has now grown to 0.9 x 0.8 x 0.6 cm (51 of 70, series 3; 63 of 121, series 601). There is a new 0.6 x 0.5 x 0.7 cm round pulmonary nodule in the left lower lobe, abutting the postero lateral pleural surface (45 of 70, series 3; 94 of 121, series 601). This was not found on the previo us CTs of 02/09/17 and 03/25/17. This should not be confused for the nearby 0.9 cm benign calcified granuloma in the left lower lobe ( 41 of 70, series 3; 90 of 121, series 601). There is no pleural effusion. Minimal subsegmental atelectasis at the right posterior costophrenic an gle. Otherwise no infiltrate or bronchiectasis. No bullae. Trachea and left and right mainstem bronch i are patent and clear. No mediastinal lymphadenopathy or hilar lymphadenopathy. There are calcified left hilar nodes consistent with old granulomatous disease. heavy calcification of LAD and LCX. No ca rdiomegaly or pericardial effusion. 1.7 cm parenchymal cyst at upper pole cortex of right kidney. No destructive osseous lesion identified. In the contralateral right lower lung, there is a 0.7 x 0.6 x 0.5 cm noncalcified, well circumscribed pulmonary nodule (44 of 70, series 3; 64 of 121, series 601) located in the medial, inferior, and po sterior aspect of the right middle lobe, very close to the inferior edge of the right major fissure. It is unchanged since 02/09/17, and may represent an intrapulmonary lymph node. IMPRESSION: 1. Cavitary mass in anterior segment of left upper lobe, highly suspicious for primary lung canc er, with bronchial invasion, has grown in size. 2. Interval growth of two basilar left lower lobe pulmonary metastatic nodules, and interval jj earance of a new small left lower lobe pulmonary metastatic nodule. 3. Interval appearance of a new small hepatic lesion, highly suspicious for solitary hepatic met astasis. 4. The right middle lobe pulmonary nodule is unchanged since 02/09/17, and is probably benign, p robably unrelated to the left lower lobe growing pulmonary nodules. Code T JN R POS: [facility]
--- NOTE | 2017-08-04 23:43 | HP ---
DATE OF ADMISSION: 08/04/2017 CHIEF COMPLAINT: Cough, shortness of breath. HISTORY OF PRESENT ILLNESS: This is an 82-year-old -[place] male with a long history of COPD , hypertension, CVA or recent diagnosis of a cavitary lesion in his left lung, presented to the emerg ency department with worsening cough and shortness of breath. The patient has been doing much better since his last admission in 01/2017. He uses his albuterol nebulizer treatments ad marcial and does muc h better when he starts developing a cough and shortness of breath with the neb treatments. Usually, he has much improvement with his cough loosening up and being more productive. For the past 2-3 day s, he has had increased cough with less relief with the neb treatments. Presented to the emergency d epartment due to increasing shortness of breath and failed therapy at home. In the emergency departm ent, he was found to be mildly hypoxic. He had some improvement with the neb treatment. The ER doct or felt like the lung mass may have been larger than before and he is being admitted for further eval uation and treatment. He is now more rest. He denies chest pain, continues to have cough and shortness of breath. He krystle ed hemoptysis. 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 Rao er; chronic kidney disease, stage 3. PAST SURGICAL HISTORY: Appendectomy repair, EGD in 2007, colonoscopy in 2010. FAMILY HISTORY: Father of cancer. Mother with UT and CVA. SOCIAL HISTORY: Lives at home, the son nearby. Quit smoking in the . No alcohol use. Retired teran. REVIEW OF SYSTEMS: As per the history of present illness. General: Denies any recent fevers, chill s or recent illness. HEENT: Denies headache, denies visual changes. Cardiac: Denies chest pain. Denies palpitations. Pulmonary: Positive cough, positive shortness of breath. Denies hemoptysis. Gastrointestinal: Denies nausea, vomiting, abdominal pain, melena, hematochezia. Genitourinary: De nies dysuria. History of benign prostatic hypertrophy with some urinary symptoms, better with oral m edications. Neurologic: History of CVA in the past. No seizures, no syncope. PHYSICAL EXAMINATION: VITAL SIGNS: Temperature 98.6, pulse of 80 and regular, respirations 19, blood pressure 190/85, puls e ox is 93% on 3 liters nasal cannula. GENERAL: He is awake and alert, in no acute distress. He does have some conversational dyspnea and using some accessory muscles. HEENT: Mucosa is moist. NECK: Supple. HEART: S1, S2. No murmurs, rubs or gallops. LUNGS: Diffuse wheezes, occasional rhonchi, worse on the left side. ABDOMEN: Flat, soft, nontender, nondistended. EXTREMITIES: No clubbing, cyanosis or edema, 2+ peripheral pulses bilaterally. NEUROLOGIC: Right-sided weakness, right facial droop. LABORATORY AND X-RAY FINDINGS: Sodium 142, potassium 4.3, chloride 105, CO2 of 26, BUN and creatinin e 17 and 1.13, serum glucose of 176. Liver enzymes are normal. Cardiac enzymes are negative. BNP w as 83, albumin of 4.2. White blood cell count 7400, hemoglobin and hematocrit of 15.6 and 47, platel ets of 151. Chest x-ray in the emergency department revealed left hilar cavitary lesion with no comm ent on comparison to a CT in 03/2017. ASSESSMENT: This is an 82-year-old gentleman with longstanding chronic obstructive pulmonary disease , now with a mild chronic obstructive pulmonary disease exacerbation as well as chest x-ray changes. PLAN: 1. We will start Solu-Medrol for his chronic obstructive pulmonary disease. We will repeat CT of th e chest and compare cavitary mass to the one in 03/2017. Continue neb treatments and oxygen therapy. 2. Hypertension. We will continue his home medications and add clonidine p.r.n. 3. History of cerebrovascular accident. We will continue Eliquis. 4. Code status discussed with patient and son, he desires a DNR status and we will follow his wishes .
[2017-08-05] MEDS ORDERED: cefTRIAXone\\ROCEPHIN 1 GM in Sodium Chloride 0.9% 100 ML IVPB SCH (01:00)
[2017-08-05 05:37] LABS: #Lymphocytes 0.6 thou/uL (1.20-3.40); #Monocytes 0.1 thou/uL (0.11-0.59); #Neutrophils 8.1 thou/uL (1.40-6.50); %Basophils 0.1 % (0.0-1.0); %Eosinophils 0.2 % (0.0-10.0); %Lymphocytes 6.3 % (21.0-51.0); %Monocytes 1.4 % (0.0-10.0); Hemoglobin 14.6 g/dL (14.0-18.0); Mean Corpuscular HGB CONC 32.5 g/dL (32.0-36.0); Mean Corpuscular Hemoglobin 29.8 pg (27.0-31.0); Mean Corpuscular Volume 91.7 fL (78.0-98.0); Mean Platelet Volume 9.6 fL (7.4-10.4); Platelet Count 155 thou/uL (130-400); RBC Distribution Width 12.7 % (11.5-14.5); White Blood Cell (WBC) Count 8.8 thou/uL (4.8-10.8)
[2017-08-05 05:49] LABS: ALT (SGPT) 14 U/L (8-55); AST (SGOT) 12 U/L (5-34); Albumin 3.6 g/dL (3.4-4.8); Alkaline Phosphatase 84 U/L (40-150); Anion Gap 12 mmol/L (10-20); BUN (Urea Nitrogen) 19 mg/dL (8.4-25.7); Bilirubin, Total 0.6 mg/dL (0.2-1.2); Calc. Creatinine Clearance 48 mL/min (70-130); Calcium 9.5 mg/dL (7.8-10.44); Carbon Dioxide 24 mmol/L (23-31); Chloride 107 mmol/L (98-107); Estimated GFR-MDRD 83; Globulin 2.3 g/dL (2.4-3.5); Glucose 176 mg/dL (83-110); Potassium 4.2 mmol/L (3.5-5.1); Protein, Total 5.9 g/dL (5.8-8.1); Sodium 139 mmol/L (136-145)
--- NOTE | 2017-08-05 08:23 | PRG ---
DATE OF SERVICE: 08/05/2017 SUBJECTIVE: The patient has improved cough. He still has some productive cough in the morning, less short of breath this morning. Denies chest pain. A good appetite. OBJECTIVE: VITAL SIGNS: Temperature 97.1, pulse of 68, respirations 20, pulse ox is 100% on room air, blood pre ssure 151/67. GENERAL: He is awake and alert, in no acute distress. Speech is clear except for slight slurring of speech, right facial droop is persistent. HEART: Regular rate and rhythm. LUNGS: With scattered rhonchi. Decreased breath sounds throughout. No wheezes. ABDOMEN: Soft. EXTREMITIES: With no edema. LABORATORY DATA: White blood cell count 8.8, hemoglobin and hematocrit 14.6 and 44.9, platelets of 1 55. Sodium 139, potassium 4.2, chloride 107, CO2 of 26, BUN and creatinine 19 and 1.04 with a GFR of 83. Serum glucose of 176. Albumin is 3.6. CT of the chest from yesterday revealed enlarging cavitary mass in the left side, highly suspicious f or primary lung cancer with bronchial invasion as per Radiology. Interval growth of 2 basilar left l ower lobe nodules consistent with metastasis with a possible new hepatic lesion highly suspicious for hepatic metastasis as well. ASSESSMENT AND PLAN: This is an 82-year-old gentleman with a longstanding COPD and left-sided lung m ass now with increase in size of lung mass, consistent with lung cancer with metastasis. 1. Chronic obstructive pulmonary disease. We will continue steroid treatment, nebs and oxygen as ne eded. 2. Lung masses suspicious for primary lung cancer. Await Dr. Benites's evaluation for further recom mendation. The patient's sons are uncertain as to whether they want to proceed with treatment for th is, but wanted to discuss options with Dr. Benites. 3. Hypertension. We will continue home medications. 4. History of cerebrovascular accident. We will continue Eliquis. 5. Code status. Again, we will continue DNR.
[2017-08-05] MEDS ORDERED: Sodium Chloride 0.9% 10 ML ONE ×2 (08:56→13:19)
[2017-08-05] MEDS: Losartan 25 MG TAB PO SCH (09:49)
[2017-08-05] MEDS: Famotidine 20 MG TAB PO SCH (09:49)
[2017-08-05] MEDS: Apixaban 5 MG TAB PO SCH ×2 (09:49→21:46)
[2017-08-05] MEDS: Carvedilol 6.25 MG TAB PO SCH ×2 (09:50→21:47)
[2017-08-05] MEDS: hydrALAZINE 25 MG TAB PO SCH ×3 (09:50→21:46)
[2017-08-05] MEDS: Multivitamin W/ Minerals 1 TAB PO SCH (09:50)
[2017-08-05] MEDS: Tamsulosin HCl 0.4 MG CAP PO SCH (09:51)
--- NOTE | 2017-08-05 11:35 | CON ---
DATE OF CONSULTATION: 08/05/2017 CONSULTING PHYSICIAN: Dr. Moe REASON FOR CONSULTATION: Left upper lobe lung mass with metastasis. HISTORY OF PRESENT ILLNESS: Mr. Nguyen is an 82-year-old male with a history of COPD, stroke and a left upper lobe lung mass that was first evident last January. I suspected that it was a cancer at that time. I had a followup CT done in 03/2017. At that time the area had grown. I suggested a needle biopsy. The patient was set up for that at [facility], but at the last second backed out and decided he did not want to have any workup done. This was reconfirmed during an office visit in March. He was scheduled to see me, I believe later this month or perhaps in August for followup CT of the chest. He was admitted to the hospital last night with cough and shortness of breath. He is not having any hemoptysis. He denies weight loss, but I am not quite sure he is cognizant enough to know whether he is losing weight or not. PAST MEDICAL HISTORY: 1. COPD. 2. Lung mass. 3. Stroke. 4. Chronic kidney disease. PAST SURGICAL HISTORY: 1. Appendectomy. 2. EGD . 3. Colonoscopy. FAMILY MEDICAL HISTORY: Remarkable for heart disease and stroke. SOCIAL HISTORY: Quit smoking in . He does not consume alcohol. He is a retired teran. REVIEW OF SYSTEMS: Twelve point review of systems otherwise negative. PHYSICAL EXAMINATION: VITAL SIGNS: Temperature 97.1, pulse 68, blood pressure 163/77, sat 100%. GENERAL: He is awake and alert and in no distress. HEENT: Remarkable for poor dentition. NECK: No adenopathy or JVD. LUNGS: Clear without wheezing or rhonchi. CARDIOVASCULAR: S1, S2 regular. ABDOMEN: Soft, nontender. EXTREMITIES: No clubbing, cyanosis, or edema. LABORATORY DATA: White blood cell count 8.8, hematocrit 44.9, platelet count 155. Sodium 139, potassium 4.2, chloride 107, CO2 24, BUN 19, creatinine 1.0, glucose 176. ASSESSMENT: 1. Left upper lobe cavitary lesion which I think is probably cancer. 2. Current DNR status. RECOMMENDATIONS: I will try to speak to the patient's son over the phone. I do not really think the patient wants any workup or treatment. Therefore, I would leave him alone and just treat him symptomatically. 70 minutes of time was spent performing consult. Of that 70 minutes, greater than 50% of the time was spent with the patient and/or on the patient's unit in the hospital. VLADIMIR
[2017-08-05 21:30] LABS: Hemoglobin 14.5 g/dL (14.0-18.0); Platelet Count 160 thou/uL (130-400)
[2017-08-05] MEDS: NIFEdipine XL 30 MG TAB PO SCH (21:47)
[2017-08-05] MEDS: Atorvastatin Calcium 10 MG TAB PO SCH (21:47)
--- NOTE | 2017-08-06 08:11 | PRG ---
DATE OF SERVICE: 08/06/2017 SUBJECTIVE: No change. The patient continues to feel well, improved coughing, no shortness of breat h. He is walking in the room without difficulty. A good appetite. OBJECTIVE: VITAL SIGNS: Temperature 97.9, pulse of 70, respirations 18, blood pressure 163/72, pulse oximetry i s 95% on 2 liters. GENERAL: He is awake and alert, in no acute distress. Speech is clear. HEART: Regular rate and rhythm. LUNGS: With decreased breath sounds, scattered rhonchi throughout. ABDOMEN: Soft. LABORATORY DATA: Nothing new. Quantiferon Gold is still pending. AFB cultures are pending. ASSESSMENT AND PLAN: This is an 82-year-old gentleman with known chronic obstructive pulmonary disea se and increasing size of a left lung mass consistent with lung cancer with metastasis to the lung an d possibly to the liver. 1. Lung masses suspicious for primary lung cancer. Dr. Benites evaluating for further recommendatio ns, likely recommending comfort measures. The patient is considering further workup. 2. Chronic obstructive pulmonary disease. We will continue steroids, nebs and oxygen therapy. 3. Hypertension. Continue medications. 4. History of cerebrovascular accident. Continue Eliquis. DISPOSITION: Depending on whether to proceed with workup or not, possibly home today with close foll owup.
--- NOTE | 2017-08-06 09:00 | PRG ---
DATE OF SERVICE: 08/06/2017 The patient is doing better than yesterday. He says his wheezing is less. PHYSICAL EXAMINATION: VITAL SIGNS: Temperature is 97.9, pulse 70, blood pressure 163/72, O2 sat 95% on 2 liters. HEENT: Unremarkable. NECK: No JVD. LUNGS: Soft expiratory wheezing. CARDIAC: S1 and S2 regular. ABDOMEN: Soft. EXTREMITIES: No edema. LABORATORY DATA: No new labs were done today. ASSESSMENT: 1. Likely lung cancer. 2. Chronic obstructive pulmonary disease with exacerbation. PLAN: I again spoke to the patient regarding workup for potential lung cancer. We spent a significa nt amount of time talking about diagnostic procedures that would need to be performed to biopsy this. He has already refused this on one occasion several months ago. I told him that he is a poor ivonne date for treatment if cancer were to be found and I am almost 100% certain that this is cancer. The patient is going to think about this at home. I do not think he is going to proceed with any kind of treatment. His son was present for this conversation and agreed. I would be happy see this patient in the office in a couple of weeks to rediscuss this. I think he can be safely discharged on a ster oid taper and antibiotics.
[2017-08-06] MEDS: Losartan 25 MG TAB PO SCH (10:24)
[2017-08-06] MEDS: Tamsulosin HCl 0.4 MG CAP PO SCH (10:25)
[2017-08-06] MEDS: Apixaban 5 MG TAB PO SCH (10:25)
[2017-08-06] MEDS: hydrALAZINE 25 MG TAB PO SCH (10:25)
[2017-08-06] MEDS: Famotidine 20 MG TAB PO SCH (10:25)
[2017-08-06] MEDS: Multivitamin W/ Minerals 1 TAB PO SCH (10:26)
[2017-08-06] MEDS: Carvedilol 6.25 MG TAB PO SCH (10:26)
[2017-08-06 15:19] VITALS: BP 156/67; TEMP 97.6
== END 2017-08-06 15:19 | disposition home or self-care (01) | DRG 191 ==
LOC: ERS 09:35 → 2NO 16:34
PROVIDERS: ADMIT Family Medicine; ATTEND Family Medicine
DX: J44.1 Chronic obstructive pulmonary disease with (acute) exacerbation (principal); C34.92 Malignant neoplasm of unspecified part of left bronchus or lung; I69.351 Hemiplegia and hemiparesis following cerebral infarction affecting right dominant side; C78.7 Secondary malignant neoplasm of liver and intrahepatic bile duct; I69.392 Facial weakness following cerebral infarction; E78.5 Hyperlipidemia, unspecified; N40.0 Benign prostatic hyperplasia without lower urinary tract symptoms; I12.9 Hypertensive chronic kidney disease with stage 1 through stage 4 chronic kidney disease, or unspecified chronic kidney disease; N18.3 Chronic kidney disease, stage 3 (moderate); R09.02 Hypoxemia; E11.22 Type 2 diabetes mellitus with diabetic chronic kidney disease; Z66 Do not resuscitate; Z87.891 Personal history of nicotine dependence; Z79.01 Long term (current) use of anticoagulants; Z86.11 Personal history of tuberculosis; Z79.4 Long term (current) use of insulin; Z99.81 Dependence on supplemental oxygen
CPT/HCPCS: 36415; 71045; 71260; 80053; 82553; 83880; 84484; 85025; 86480; 87040; 93005; 94640; 96365; 96367; 96375; A4216; J0360; J0456; J0696; J2920; J7050; J7506; J7620

== ENCOUNTER 2017-09-16 14:53 | Outpatient (CLI) | payer MEDICARE, MEDICAID ==
--- NOTE | 2017-09-16 15:33 | RAD ---
TWO VIEWS CHEST: 09/16/17 PROVIDED CLINICAL HISTORY: Lung mass. FINDINGS: Comparison is made with the study dated 05/11/17. The cardiac and mediastinal silhouette is unchanged in appearance. Left lingular mass is redemonstrat ed, appearing radiographically similar to the prior study. Calcified granuloma at the left lung base is again seen. There is a pulmonary nodule also present at the left lung base which is noncalcified. There is no pleural fluid or pneumothorax apparent. IMPRESSION: Stable radiographic appearance of the chest. POS: [facility]
== END 2017-09-16 14:54 | disposition home or self-care (01) ==
LOC: RAD 14:53
PROVIDERS: ATTEND Internal Medicine Critical Care Medicine
DX: R91.8 Other nonspecific abnormal finding of lung field (principal)
CPT/HCPCS: 71046

== ENCOUNTER 2017-11-17 13:58 | Outpatient (CLI) | payer MEDICARE, MEDICAID ==
--- NOTE | 2017-11-17 15:55 | RAD ---
PA AND LATERAL CHEST: Date: 11/17/17 INDICATION: History of dyspnea. FINDINGS: Left upper lobe cavitary lung mass appears to have intervally grown since the comparison study and no w measures approximately 4.5 cm, where it previously measured approximately 3.6 cm. Left lower lobe p ulmonary nodules also appear to have increased in size. There is some blunting of the left costophren ic angle suspicious for a small right pleural effusion. COPD change is similar. Osseous structures ar e similar. IMPRESSION: Findings suspicious for worsening malignancy and metastatic disease in the left lung. POS: [facility]
== END 2017-11-17 13:59 | disposition home or self-care (01) ==
LOC: RAD 13:58
PROVIDERS: ATTEND Internal Medicine Critical Care Medicine
DX: R06.00 Dyspnea, unspecified (principal)
CPT/HCPCS: 71046

== ENCOUNTER 2018-03-31 13:19 | Outpatient (CLI) | payer MEDICARE, MEDICAID ==
--- NOTE | 2018-03-31 15:25 | RAD ---
CHEST 2 VIEWS: HISTORY: Dyspnea. Lung mass. COMPARISON: 11/17/2017. FINDINGS: Cardiac silhouette and pulmonary vasculature are unremarkable. Left perihilar mass has enlarged to 5 .1 cm oblique diameter on the frontal view. Lungs are hyperinflated. Calcified granulomata are cons istent with healed granulomatous disease. Degenerative changes thoracic spine. IMPRESSION: Continued enlargement of the cavitary left perihilar mass. POS: [facility]
== END 2018-03-31 13:20 | disposition home or self-care (01) ==
LOC: RAD 13:19
PROVIDERS: ATTEND Internal Medicine Critical Care Medicine
DX: R06.00 Dyspnea, unspecified (principal); R91.8 Other nonspecific abnormal finding of lung field
CPT/HCPCS: 71046

== ENCOUNTER 2018-05-02 11:30 | Inpatient (IN) | payer MEDICARE, OTHER ==
[~2018-05-02 11:30] MED LIST: Gadobenate Dimeglumine 529 MG/1 ML (20ML VIAL) ONE; ISOVUE-370 76%-LOCM 1 ML ONE
[2018-05-02 12:14] LABS: #Eosinphils 0.2 thou/uL (0.0-0.7); #Monocytes 0.4 thou/uL (0.11-0.59); %Basophils 0.1 % (0.0-1.0); %Eosinophils 2.4 % (0.0-10.0); %Lymphocytes 12.8 % (21.0-51.0); %Monocytes 4.9 % (0.0-10.0); %Neutrophils 79.8 % (42.0-75.0); Hemoglobin 13.8 g/dL (14.0-18.0); Mean Corpuscular HGB CONC 31.6 g/dL (32.0-36.0); Mean Corpuscular Hemoglobin 28.5 pg (27.0-31.0); Mean Corpuscular Volume 90.1 fL (78.0-98.0); Mean Platelet Volume 9.5 fL (7.4-10.4); Platelet Count 170 thou/uL (130-400); Red Blood Cell (RBC) Count 4.85 mill/uL (4.70-6.10); White Blood Cell (WBC) Count 7.6 thou/uL (4.8-10.8)
--- NOTE | 2018-05-02 12:15 | CT ---
HEAD CT WITHOUT CONTRAST: Date: 05/02/18 COMPARISON: 07/10/15. HISTORY: Right-sided facial droop, onset 0500 hours. FINDINGS: No parenchymal hemorrhage. No extra-axial hematoma. No midline shift. Basilar cisterns are patent. Br ain volume, age-appropriate. Cortical small-white matter differentiation preserved. Ventricles and sul ci are patent and symmetric. Stable white matter hypodensities due to chronic small vessel ischemic change. Subtle hyperdensity involving the terminus of the left MCA may represent a small thrombus. CT angiogr am is recommended. Calvarium is intact. Adequate aeration of the sinuses and mastoid air cells. IMPRESSION: Possible thrombus at terminus of left middle cerebral artery. CT angiogram is recommended. Results of study discussed with Dr. Collins on 05/02/18 at 1153 hours. CODE CR. POS: [facility]
[2018-05-02 12:22] LABS: INR-International Normal Ratio 1.5
[2018-05-02 12:27] LABS: ALT (SGPT) 14 U/L (8-55); AST (SGOT) 15 U/L (5-34); Alkaline Phosphatase 111 U/L (40-150); Anion Gap 12 mmol/L (10-20); BUN (Urea Nitrogen) 16 mg/dL (8.4-25.7); Bilirubin, Total 0.7 mg/dL (0.2-1.2); CK (CPK) 42 U/L (30-200); Calc. Creatinine Clearance 0 mL/min (70-130); Calcium 11.4 mg/dL (7.8-10.44); Carbon Dioxide 27 mmol/L (23-31); Chloride 105 mmol/L (98-107); Estimated GFR-MDRD 88; Globulin 2.9 g/dL (2.4-3.5); Glucose 148 mg/dL (83-110); Potassium 4.3 mmol/L (3.5-5.1); Protein, Total 6.9 g/dL (5.8-8.1); Sodium 140 mmol/L (136-145)
[2018-05-02 12:29] LABS: Bilirubin Negative (Negative); Blood, Urine Negative (Negative); Clarity CLEAR (Clear); Glucose, Urine (Dipstick) Negative (Negative); Leukocyte Negative (Negative); Nitrite Negative (Negative); Protein, Urine (Dipstick) Negative (Neg-Trace); Specific Gravity, Urine 1.007 (1.002-1.036); pH, Urine 7.5 (5.0-9.0)
--- NOTE | 2018-05-02 12:35 | CT ---
CTA CAROTID AND INTRACRANIAL CTA: HISTORY: Stroke. TECHNIQUE: Contrast enhanced CTA of the neck and intracranial CTA are performed, and 2D and 3D reconstructed rik ges are performed on an independent 3D work station. FINDINGS: Some prominent reticulonodular densities are seen in the lungs. There is a cavitary mass in the left upper lobe, measuring at least 4.7 cm in diameter. Marked heterogeneity is seen in the right and left thyroid lobes. There is a 1.4 cm right level 4 lymph node, which is abnormally enlarged, concerning for possible met astatic disease. The aorta is unremarkable. The right brachiocephalic artery is patent. The right common carotid artery is patent, in the proximal mid and distal aspects. Some atherosclero tic plaque is seen in the origin of the right ICA with approximately 50% right ICA origin stenosis. More distally, the right ICA is patent. The left common carotid artery is patent. Some atherosclerotic plaque is seen in the origin of the l eft ICA, resulting in minimal stenosis. More distally, the left ICA is patent. The supraclinoid ICA is patent. BIA, MCA, and [employer] vessels are patent. IMPRESSION: 1. Right level IV enlarged lymph node. 2. Cavitary mass, left upper lobe. 3. No definite evidence of occlusive intracranial lesions seen. Findings called to Dr. Collins at 12:21 p.m. on 05/02/2018. CODE CR POS: [facility]
[2018-05-02] MEDS ORDERED: hydrALAZINE 20 MG/ML VIAL ONE (14:31)
--- NOTE | 2018-05-02 17:34 | MRI ---
BRAIN MRI WITH AND WITHOUT CONTRAST: History: Possible CVA. Stroke. Comparison: None. Technique: Brain MRI is performed with and without intravenous gadolinium administration. Multisequen tial, multiplanar images are performed. FINDINGS: There is appropriately enhancing centrally necrotic lesion involving the right occipital lobe measuri ng 3.8 cm x 3.5 cm. There is associated mild vasogenic edema. No significant hemorrhage on the axial gradient echo sequence. Age appropriate atrophy. Cortical small white matter differentiation is preserved. No hydrocephalus. Central arterial flow voids are maintained. There are small watershed infarcts in the right cerebrum . IMPRESSION: 1. Solitary enhancing focus involving the right occipital lobe, worrisome for malignancy until proven otherwise. 2. Small watershed infarcts in the right cerebrum. POS: [facility]
[2018-05-02] MEDS ORDERED: cloNIDine 0.1 MG TAB PO PRN (18:55)
[2018-05-02] MEDS ORDERED: Ondansetron PF 4 MG/2 ML Vial IVP PRN (19:09)
[2018-05-02] MEDS ORDERED: Ondansetron ODT 4 MG TAB SL PRN (19:09)
[2018-05-02] MEDS ORDERED: Acetaminophen 325 MG TAB PO PRN (19:09)
[2018-05-02] MEDS: Atorvastatin Calcium 10 MG TAB PO SCH (20:53)
[2018-05-02] MEDS: hydrALAZINE 25 MG TAB PO SCH (20:55)
[2018-05-02] MEDS: Apixaban 5 MG TAB PO SCH (20:55)
[2018-05-02] MEDS: NIFEdipine XL 30 MG TAB PO SCH (20:56)
[2018-05-02] MEDS ORDERED: Carvedilol 6.25 MG TAB PO SCH (21:00)
[2018-05-02 22:20] VITALS: BMI 18.8
[2018-05-02] MEDS ORDERED: Prevnar 13-Val Conj/PF 0.5 ML SYRINGE IM ONE (22:45)
[2018-05-02] MEDS: methylPREDNISolone Sod Succ 40 MG VIAL IVP SCH (23:52)
--- NOTE | 2018-05-03 01:33 | HP ---
CHIEF COMPLAINT: Left-sided weakness, right facial tightness, cough, congestion. 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 He has been followed by myself and Dr. Benites over the past few years. He has episodes of worsening cough and shortness of breath that usually improves with steroids, antibiotics, nebulizer treatments. He was recently found to have left upper lobe lung mass in January of 2017. Dr. Benites was following him and suspected it was cancer, had a followup CT and the mass had grown. Dr. Benites had recommended needle biopsy, but the patient declined. Upon further admission , the patient continued to decline the biopsy, was recently seen by Dr. Benites in March of 2017. Again, a discussion was made at that time about the lung mass and the patient again declined any further workup due to the poor quality of life with treatment of possible lung cancer. The patient had been doing quite well since that time until yesterday when he developed left-sided weakness and heaviness in his left arm and leg as well as tightness in his right face, presented to the Emergency Department this afternoon for evaluation. He underwent a workup. The emergency room physician was suspicious for either a new stroke or possible mass and recommended admission for MRI and further workup. The patient underwent MRI which did reveal a right occipital mass. The patient also has had worsening cough, congestion, difficulty clearing his lungs. States he feels like he has mucus in his chest, it is not able to clear as possible that this is the mass effect of the enlarging lung mass. Discussion was made with the patient and caregiver about a plan. He continues to decline further workup of the lung mass. He does want to be made comfortable and he wants to discuss with Dr. Benites about options at this point. PAST MEDICAL HISTORY: Hypertension, hyperlipidemia, COPD, paroxysmal atrial fibrillation, history of CVA with residual right facial droop and right-sided weakness, hyperlipidemia, BPH, enlarging cavitary lung mass in the left lung, chronic kidney disease, stage 3. PAST SURGICAL HISTORY: Appendectomy, EGD, colonoscopy. FAMILY HISTORY: Father of cancer. Mother with IN and CVA. SOCIAL HISTORY: Lives at home with son nearby. He quit smoking in the . No alcohol. He is a retired teran. MEDICATIONS: Include 1. DuoNeb q.i.d. p.r.n. 2. Eliquis 5 mg b.i.d. 3. Lipitor 10 mg at bedtime. 4. Carvedilol 6.25 mg b.i.d. 5. Clonidine 0.1 mg p.r.n. elevated blood pressure. 6. Famotidine 20 mg daily. 7. Hydralazine 50 mg t.i.d. 8. Multivitamin daily. 9. Methylprednisolone daily. 10. Procardia XL 30 mg at bedtime. 11. Flomax 0.4 mg daily. ALLERGIES: TO PREDNISONE. REVIEW OF SYSTEMS: As per the history of present illness. CONSTITUTIONAL: He does admit to increased weakness. No falls, but more problems with balance. HEENT: No headache. Some visual changes which have been chronic since the stroke, but he states that he has had more visual changes as of late and difficulty seeing. CARDIAC: Denies chest pain. PULMONARY: Positive cough. Positive shortness of breath. No hemoptysis. GI: No nausea, vomiting, abdominal pain, melena, or hematochezia. : History of BPH. No dysuria or hematuria. NEUROLOGIC: No seizures or syncope. Positive for right facial droop. Positive for left-sided weakness. No falls. He does have assistance at home. PSYCHIATRIC: He denies depression or anxiety. PHYSICAL EXAMINATION: VITAL SIGNS: He is afebrile. Blood pressure was elevated in the 180s in the Emergency Department. HEENT: Mucosa is moist. NECK: Supple. No JVD, adenopathy, or bruits. He does have no palpable lymph nodes in his cervical region. HEART: Regular rate and rhythm with 2/6 systolic ejection murmur. LUNGS: Scattered rhonchi throughout. No wheezes, no rales at the bases. ABDOMEN: Flat, soft, nontender, and nondistended. No hepatosplenomegaly. EXTREMITIES: No clubbing, cyanosis, or edema. 2+ peripheral pulses bilaterally. No edema. NEUROLOGIC: Cranial nerves 2 through 12 are intact. Decreased sensation on his left side, upper and lower extremities. He has a right facial droop. Strength is 5/5 in upper and lower extremities. LABORATORY DATA: Sodium 140, potassium 4.3, chloride 105, CO2 of 27, BUN and creatinine 16 and 0.99, GFR of 88, serum glucose of 148, calcium of 11.4, alkaline phosphatase normal at 111. PT and PTT are slightly elevated at 18 and 40.7. White blood cell count 7600, hemoglobin and hematocrit of 13.8 and 43.7, platelets of 170. Brain CT showed a possible thrombus at the terminus of the left middle cerebral artery. CT angiogram of the brain revealed right level 4 enlarged lymph node, cavitary mass in the left upper lobe. No evidence of occlusive intracranial lesions. MRI of the brain reveals solitary enhancing focus in the right occipital lobe, worrisome for malignancy. ASSESSMENT AND PLAN: This is an 82-year-old gentleman with severe chronic obstructive pulmonary disease and enlarging cavitary left lung mass, now with right-sided brain lesion suspicious for malignancy. 1. Lung mass and brain mass. I had a long discussion with the patient and caregiver about options. The patient continues to not want extreme measures done. He is declining further workup with a lung mass, but wants to talk about it over with Dr. Benites. The patient understands implications of treatment and is considering his quality of life issues at this point. I will also consult Palliative Care for assistance with symptom management as well as treatment options. 2. Chronic obstructive pulmonary disease. I will increase steroids with IV Solu-Medrol, may also help decrease mass-effect of the brain mass. 3. Hypertension. We will continue his medications and start clonidine p.r.n. elevated blood pressure. 4. Gastrointestinal protection with Pepcid. 5. Paroxysmal atrial fibrillation. Will continue Eliquis for anticoagulation therapy. He is rate controlled. 6. Code status, the patient desires a do not resuscitate. Job ID: [id number] [facility]
[2018-05-03] MEDS: methylPREDNISolone Sod Succ 40 MG VIAL IVP SCH ×3 (04:52→17:59)
--- NOTE | 2018-05-03 08:38 | PRG ---
DATE OF SERVICE: 05/03/2018 SUBJECTIVE: The patient states that he is feeling much better. Cough is improved. He states that it is not as productive. Continues to have some left leg weakness, but improved. He has not been out of bed due to his fall risk at this time. He states that he is anxious to go home. OBJECTIVE: VITAL SIGNS: Temperature 97.7, pulse is 76, respirations 17, blood pressure elevated at 176/82, and pulse ox is 94% on room air. GENERAL: He is awake and alert, in no acute distress. Speech is clear with mild dysarthria from his chronic right facial droop. NECK: Supple. HEART: Regular rate and rhythm. LUNGS: Diminished throughout. No wheezes. Decreased rhonchi from yesterday. ABDOMEN: Soft. EXTREMITIES: With no edema. Strength is 5/5 in upper and lower extremities. LABORATORY DATA: Serum glucose of 156. ASSESSMENT AND PLAN: An 82-year-old gentleman with severe chronic obstructive pulmonary disease and enlarging cavitary left lung mass, now with right-sided brain lesion suspicious for malignancy. 1. Lung mass and brain lesion. The patient continues to decline further workup including biopsies not interested in treatment, awaiting palliative care evaluation for symptom measures. He would like to speak with Dr. Benites about other options too. 2. Chronic obstructive pulmonary disease naranjo improved with IV steroids. May be able to be switched back to oral steroids prior to discharge home. 3. Hypertension. We will increase his carvedilol. 4. Paroxysmal atrial fibrillation. Continue Eliquis at this time. 5. Increased weakness. We will consult PT, OT for evaluation. 6. Disposition: Hopefully, will be able to discharge home. I discussed with family about assistance at home. We will consult Case Management for evaluation for home health, possibly home PT if he qualifies. Job ID: [id number]
[2018-05-03] MEDS ORDERED: Prevnar 13-Val Conj/PF 0.5 ML SYRINGE IM ONE (09:00)
[2018-05-03] MEDS: Famotidine 20 MG TAB PO SCH (09:06)
[2018-05-03] MEDS: hydrALAZINE 25 MG TAB PO SCH ×3 (09:06→21:17)
[2018-05-03] MEDS: Carvedilol 6.25 MG TAB PO SCH ×2 (09:09→21:18)
[2018-05-03] MEDS: Multivitamin W/ Minerals 1 TAB PO SCH (09:10)
[2018-05-03] MEDS: Tamsulosin HCl 0.4 MG CAP PO SCH (09:10)
[2018-05-03] MEDS: Apixaban 5 MG TAB PO SCH (10:09)
--- NOTE | 2018-05-03 11:12 | CON ---
DATE OF CONSULTATION: 05/03/2018 CONSULTING PHYSICIAN: Rigo Moe DO. REASON FOR CONSULTATION: Lung cancer with metastasis. HISTORY OF PRESENT ILLNESS: Mr. Nguyen is an 82-year-old male who I have known for quite some time. He developed a left upper lobe mass in 01/2017, which I have followed. He has steadfastly refused biopsy despite the fact the mass has continued to grow. He is actually maintained a fairly decent quality of life through all this. He came in yesterday with a left-sided facial droop and left weakness. He has been diagnosed with a metastatic lesion to the right occipital area. He has had no seizure activity. No difficulty with speech or swallowing. PAST MEDICAL HISTORY: 1. Probable lung cancer. 2. Hypertension. 3. Hyperlipidemia. 4. Chronic obstructive pulmonary disease. 5. Paroxysmal atrial fibrillation. 6. Stroke. 7. Prostatic hypertrophy. 8. Chronic kidney disease. PAST SURGICAL HISTORY: 1. Appendectomy. 2. EGD. 3. Colonoscopy. FAMILY MEDICAL HISTORY: Remarkable for cancer, heart disease, and stroke. SOCIAL HISTORY: Quit smoking in . Lives at home, is actually quite functional. MEDICATIONS: Prior to admission, DuoNeb, Eliquis, Lipitor, carvedilol, clonidine, famotidine, hydralazine, multivitamin, methylprednisolone, Procardia, Flomax. ALLERGIES: PREDNISONE. REVIEW OF SYSTEMS: Otherwise negative. PHYSICAL EXAMINATION: VITAL SIGNS: Temperature 97.7, pulse 76, respirations 17, O2 saturation 94%, blood pressure 176/82. GENERAL: He is awake and alert, and in no distress. HEENT: Remarkable for the facial droop. NECK: No JVD. CHEST: Clear to auscultation. CARDIAC: S1, S2 regular. ABDOMEN: Soft, nontender. EXTREMITIES: No edema. LABORATORY DATA: Reviewed. Of note, his INR is 1.5. Sodium is 140, potassium 4.3, chloride 105, CO2 is 27, BUN 16, creatinine 0.9, glucose 148. ASSESSMENT: 1. Lung cancer with metastasis to the brain. 2. History of paroxysmal atrial fibrillation. PLAN: 1. I would recommend discontinuing his Eliquis for the increased risk of bleeding in one of these brain METS. I think that risk far exceeds the potential stroke risk from his atrial fibrillation. 2. He does not want radiation or surgical therapy for the metastatic lesion in the brain. Instead, they are interested in hospice versus continuing home health. 3. I agree with steroids. I think he can be converted to methylprednisolone as an outpatient. Thank you for the referral. Job ID: [id number]
[2018-05-03] MEDS ORDERED: HumaLOG 300 UNITS/3 ML VIAL SC PRN ×2 (17:15→17:18)
[2018-05-03] MEDS: Atorvastatin Calcium 10 MG TAB PO SCH (21:18)
[2018-05-03] MEDS: NIFEdipine XL 30 MG TAB PO SCH (21:18)
[2018-05-04] MEDS: methylPREDNISolone Sod Succ 40 MG VIAL IVP SCH ×3 (00:58→12:10)
[2018-05-04] MEDS: Tamsulosin HCl 0.4 MG CAP PO SCH (09:10)
[2018-05-04] MEDS: Carvedilol 6.25 MG TAB PO SCH (09:10)
[2018-05-04] MEDS: hydrALAZINE 25 MG TAB PO SCH ×2 (09:11→15:34)
[2018-05-04] MEDS: Famotidine 20 MG TAB PO SCH (09:11)
[2018-05-04] MEDS: Multivitamin W/ Minerals 1 TAB PO SCH (09:12)
--- NOTE | 2018-05-04 11:34 | PRG ---
DATE OF SERVICE: 05/04/2018 SUBJECTIVE: Mr. Nguyen is sitting up in bed, eating his breakfast this morning. Overall, he looks good. His son states that his father still has some left arm weakness. OBJECTIVE: VITAL SIGNS: Temperature is 98.2, pulse 73, blood pressure 145/65, O2 saturation 93%. HEENT: Remarkable for right-sided facial droop. NECK: No JVD. CHEST: Clear. CARDIAC: S1 and S2, regular. ABDOMEN: Soft. EXTREMITIES: No edema. ASSESSMENT: 1. Lung cancer with metastasis to the brain. 2. Neurologic deficit secondary to the metastatic lesion. RECOMMENDATIONS: I have recommended hospice care to the patient. He does not want any intervention, otherwise. Job ID: [id number]
[2018-05-04 15:34] VITALS: BP 162/68
[2018-05-04 16:00] VITALS: TEMP 98.4
--- NOTE | 2018-05-05 11:09 | DIS ---
DATE OF ADMISSION: 05/03/2018 DATE OF DISCHARGE: 05/04/2018 ADMISSION DIAGNOSES: 1. Left-sided weakness. 2. Possible transient ischemic attack. 3. New right occipital brain mass. 4. Known metastatic lung mass suspicious for malignancy. DISCHARGE DIAGNOSES: 1. Brain mass. 2. Lung mass. 3. Chronic obstructive pulmonary disease exacerbation. 4. Lung cancer. CONSULTATIONS: Dr. Benites for Pulmonary. PROCEDURES: CT angiogram, CT brain, and brain MRI. HOSPITAL COURSE: This is an 82-year-old gentleman with long stage COPD with frequent admissions for exacerbations, who presented to the emergency department with left-sided weakness and right facial tightness and shortness of breath. He has been known to have left lung mass since January 2017. He has been followed by Dr. Benites. The patient has continued to decline workup including biopsies of this lung mass and has continued to grow over the years. On the day of admission, the patient came to the emergency room after noticing left-sided weakness and tightness in his face. Again, he had a workup done including the brain CT, which showed no new stroke. A brain angiogram and brain MRI, which did reveal the new mass mentioned above. Options were discussed with the patient. He wanted to talk with Dr. Benites and Dr. Benites saw the patient. Evaluation reviewed the scans and determined that the brain mass is likely secondary to metastasis from the lung mass, which is evidently from lung cancer. The patient was discussed of the options and continued to decline any further workup, felt like quality of life was more important then initiating any further evaluation or treatment including radiation therapy and chemotherapy or surgery. Dr. Benites felt like it was worth to discontinue the Eliquis in spite of his history of a CVA due to the increased risk of bleeding from his brain metastasis and Eliquis was discontinued. Case Management was consulted for options as far as placement. The patient wanted to go home with home health, declined hospice therapy at this time and he was discharged home in good condition discharge. DISCHARGE PHYSICAL EXAMINATION: VITAL SIGNS: Temperature 98.4, pulse is 71, respirations 20, blood pressure 162/68, and pulse ox 93% to 96% on room air. GENERAL: He is awake and alert, in no acute distress. He does have slurred speech with right facial droop. NECK: Supple. HEART: Regular rate and rhythm. LUNGS: With decreased breath sounds. Scattered rhonchi, but no wheezes. ABDOMEN: Soft. EXTREMITIES: With no edema. PRIOR DISCHARGE MEDICATIONS: Included; 1. Lipitor 10 mg at bedtime. 2. Carvedilol 12.5 mg b.i.d. 3. Clonidine 0.1 mg q.4 p.r.n. 4. Famotidine 20 mg daily. 5. Hydralazine 50 mg t.i.d. 6. DuoNeb p.r.n. 7. Multivitamin daily. 8. Procardia 30 mg at bedtime. 9. Tamsulosin 4 mg daily. 10. Cozaar 50 mg daily. 11. Methylprednisolone 4 mg daily. FOLLOWUP INSTRUCTIONS: The patient to follow up in my office in 1 to 2 weeks. Home health initiated. Job ID: [id number]
== END 2018-05-04 18:02 | disposition home health service (06) | DRG 55 ==
LOC: ERS 11:30 → ERHOLD 15:44 → 2SE 18:54 → OBSVTOIN 05-03 17:15
PROVIDERS: ADMIT Family Medicine; ATTEND Family Medicine
DX: C79.31 Secondary malignant neoplasm of brain (principal); C34.90 Malignant neoplasm of unspecified part of unspecified bronchus or lung; J44.9 Chronic obstructive pulmonary disease, unspecified; I48.0 Paroxysmal atrial fibrillation; Z79.01 Long term (current) use of anticoagulants; E78.5 Hyperlipidemia, unspecified; I12.9 Hypertensive chronic kidney disease with stage 1 through stage 4 chronic kidney disease, or unspecified chronic kidney disease; N40.0 Benign prostatic hyperplasia without lower urinary tract symptoms; N18.3 Chronic kidney disease, stage 3 (moderate)
CPT/HCPCS: 36416; 70450; 70496; 70498; 70553; 80053; 81003; 82550; 84484; 85025; 85610; 85730; 90471; 90670; 93005; 94640; 96374; A9577; G0009; J0360; J2920; J7620; Q9966

== ENCOUNTER 2018-07-12 07:11 | Emergency (ER) | payer MEDICARE, MEDICAID ==
[2018-07-12 07:53] LABS: #Eosinphils 0.1 thou/uL (0.0-0.7); #Monocytes 0.6 thou/uL (0.11-0.59); #Neutrophils 5.5 thou/uL (1.40-6.50); %Basophils 0.4 % (0.0-1.0); %Eosinophils 1.2 % (0.0-10.0); %Lymphocytes 13.9 % (21.0-51.0); %Monocytes 8.8 % (0.0-10.0); %Neutrophils 75.8 % (42.0-75.0); Hemoglobin 15.6 g/dL (14.0-18.0); Mean Corpuscular HGB CONC 31.7 g/dL (32.0-36.0); Mean Corpuscular Hemoglobin 28.7 pg (27.0-31.0); Mean Corpuscular Volume 90.5 fL (78.0-98.0); Mean Platelet Volume 9.8 fL (7.4-10.4); Platelet Count 182 thou/uL (130-400); RBC Distribution Width 13.9 % (11.5-14.5); Red Blood Cell (RBC) Count 5.46 mill/uL (4.70-6.10); White Blood Cell (WBC) Count 7.2 thou/uL (4.8-10.8)
[2018-07-12 08:21] LABS: ALT (SGPT) 16 U/L (8-55); AST (SGOT) 18 U/L (5-34); Alkaline Phosphatase 121 U/L (40-150); Anion Gap 11 mmol/L (10-20); BUN (Urea Nitrogen) 22 mg/dL (8.4-25.7); Bilirubin, Total 1.4 mg/dL (0.2-1.2); Calc. Creatinine Clearance 0 mL/min (70-130); Carbon Dioxide 30 mmol/L (23-31); Chloride 113 mmol/L (98-107); Estimated GFR-MDRD 70; Globulin 2.4 g/dL (2.4-3.5); Glucose 143 mg/dL (83-110); Potassium 3.9 mmol/L (3.5-5.1); Protein, Total 6.4 g/dL (5.8-8.1); Sodium 150 mmol/L (136-145)
[2018-07-12 08:25] LABS: Calcium 13.3 mg/dL (7.8-10.44)
[2018-07-12] MEDS ORDERED: ISOVUE-370 76%-LOCM 1 ML ONE (09:02)
--- NOTE | 2018-07-12 09:04 | RAD ---
CHEST ONE VIEW: History: Pain. Comparison: 08-04-17, 04-10-18 FINDINGS: Enlarging left perihilar lobe. Opacification and obscuration of the left hemidiaphragm due to pleural and parenchymal changes. No pneumothorax. IMPRESSION: Enlarging cavitary mass in the left hilum. POS: [facility]
--- NOTE | 2018-07-12 10:17 | CT ---
CT ANGIO CHEST PERFORMED WITH INTRAVENOUS CONTRAST ENHANCEMENT: History: Shortness of breath, cough. History of lung cancer with chest pain, onset this morning. Comparison: CT exam of 08-04-17. FINDINGS: Severe emphysematous lung changes are again demonstrated. There has now been development of a loculat ed left sided pleural effusion, the main portion of this is loculated in the left mid to upper chest region. The left lower lobe pulmonary nodules have significantly increased in size with multiple nodu les now present, one that was measured at 12 mm on the previous examination now measures 3.2 cm. Ther e are other new nodules and enlarged nodules demonstrated. In addition, the cavitary lesion in the le ft upper lobe which measured 4.1 cm in AP dimension on the prior exam now measures 6.2 cm. There is a new cavitary lesion in the right lower lobe and also some pleural based masses in the right upper lo be, have developed or have increased in size as compared to prior examination. There is a small mediastinal lymph node, not definitely significantly enlarged. There is fairly good pulmonary artery opacification. No CT evidence for pulmonary embolus. There has been a progression of the metastatic liver disease, now with a large mass at the level of t he junction of the right and left lobes measuring 7.1 cm. IMPRESSION: 1. No CT evidence for pulmonary embolus. 2. Significant progression of metastatic disease. POS: [facility]
== END 2018-07-12 12:28 | disposition home or self-care (01) ==
LOC: ERS 07:11
DX: R07.89 Other chest pain (principal); R16.0 Hepatomegaly, not elsewhere classified; C34.90 Malignant neoplasm of unspecified part of unspecified bronchus or lung; J90 Pleural effusion, not elsewhere classified; E11.9 Type 2 diabetes mellitus without complications; I25.2 Old myocardial infarction; E78.5 Hyperlipidemia, unspecified; I10 Essential (primary) hypertension; J44.9 Chronic obstructive pulmonary disease, unspecified; Z87.891 Personal history of nicotine dependence; Z79.899 Other long term (current) drug therapy; Z79.01 Long term (current) use of anticoagulants
CPT/HCPCS: 36415; 71045; 71275; 80053; 84484; 85025; 93005; Q9966